=== PATIENT | male | born 1995 | race Caucasian/White ===

== ENCOUNTER 2017-05-01 16:22 | Emergency (ER) | payer OTHER ==
[~2017-05-01] VITALS: Ht 165.1 cm; Wt 63.5 kg
[~2017-05-01 16:22] MED LIST: BENADRYL25 M1 PO; MEDROL DOSEPAK4 MG DOB; ZANTAC150 M1 PO
== END 2017-05-01 17:15 | disposition home or self-care (01) ==
LOC: CFTX 16:22 → CED 16:22 → CFTX 17:11
DX: L25.9 Unspecified contact dermatitis, unspecified cause (principal); R03.0 Elevated blood-pressure reading, without diagnosis of hypertension; F90.9 Attention-deficit hyperactivity disorder, unspecified type; Z79.899 Other long term (current) drug therapy
CPT/HCPCS: 99282

== ENCOUNTER 2017-05-16 09:03 | Emergency (ER) | payer OTHER ==
[~2017-05-16] VITALS: Ht 165.1 cm; Wt 63.5 kg
== END 2017-05-16 09:25 | disposition home or self-care (01) ==
LOC: CED 09:03
DX: B35.6 Tinea cruris (principal); F90.9 Attention-deficit hyperactivity disorder, unspecified type
CPT/HCPCS: 99282